=== PATIENT | male | born 1950 | race Caucasian/White ===

== ENCOUNTER 2017-10-23 06:12 | Day surgery (SDC) | payer OTHER ==
[2017-10-23] MEDS ORDERED: ATROPINE SULFATE 1 MG/10 ML SYR IVP ONE (06:15)
[2017-10-23] MEDS ORDERED: NS 1,000 ML IV ONE (06:15)
--- NOTE | 2017-10-23 06:29 | CPEKG ---
Heart Rate: 88 RR Interval: 682 QRSD Interval: 84 QT Interval: 360 QTC Interval: 436 QRS Barnhart: -61 T Wave Barnhart: -4 EKG Severity - ABNORMAL ECG - EKG Impression: ATRIAL FLUTTER, A-RATE 306 EKG Impression: LAD, CONSIDER LEFT ANTERIOR FASCICULAR BLOCK EKG Impression: REPOL ABNRM SUGGESTS ISCHEMIA, INFERIOR LEADS Electronically Signed By: Breezy Galicia 23-Oct-2017 08:22:26
[2017-10-23 06:53] LABS: INR 1.16 (0.83-1.16)
--- NOTE | 2017-10-23 07:51 | PDANEPAE ---
ANE History of Present Illness 66 yo for roya/cv ANE Past Medical History - Cardiovascular History Hx Arrhythmias: Yes - Pulmonary History Hx Oxygen in Use at Home: No Hx Sleep Apnea: No - Endocrine History Hx Diabetes: No ANE Review of Systems Review of Systems: - Exercise capacity METS (RN): 5 METS ANE Patient History - Allergies Allergies/Adverse Reactions: No Known Allergies Allergy (Unverified 02/21/16 12:34) - Home Medications Home medications: home medication list seen and reviewed Home Medications: Eliquis 5 mg PO BID 10/23/17 [Last Taken 10/23/17 05:15] Toprol Xl 25 mg PO DAILY 10/23/17 [Last Taken 10/23/17 05:15] - NPO status NPO Status: no food or drink >8 hours - Anes Hx Anes Hx: no prior problems - Smoking Hx Smoking Status: Never smoked ANE Labs/Vital Signs - Labs Result Diagrams: 10/23/17 06:15 10/23/17 06:15 - Vital Signs Height: 5 ft 8.9 in Weight: 66.7 kg ANE Physical Exam - Airway Neck exam: FROM Mallampati Score: Class 2 Mouth exam: normal dental/mouth exam - Pulmonary Pulmonary: no respiratory distress - Cardiovascular Cardiovascular: regular rate and rhythym - ASA Status ASA Status: II ANE Anesthesia Plan Anesthesia Plan: GA with mask
[2017-10-23] MEDS ORDERED: PROPOFOL 200 MG/20 ML VIAL ONE (07:59)
--- NOTE | 2017-10-23 08:10 | PDHPUP ---
History & Physical Update H&P update statement: This history and physical update is based on an assessment of the patient which was completed after admission or registration (within 24 hours), but prior to the surgery/procedure. H&P update: H&P reviewed & patient examined, no change in patient's condition since H&P completed
--- NOTE | 2017-10-23 08:39 | PDTEE1 ---
KASEY Cardioversion Procedure Procedure: electrical cardioversion, transesophageal echo Indications: atrial fibrillation Consent: signed and in chart Anticoagulation: eliquis Procedural Details: Sedation provided by the anesthesia service. Pads were placed in anterior- posterior position. KASEY probe was advanced and standard images obtained. There is no evidence of left atrial or left atrial appendage thrombus. Synchronized cardioversion attempt #1: 200J Results: normal sinus rhythm Conclusions: successful KASEY cardioversion (I directly supervised Génesis Cameron PA-C during the cardioversion portion of this procedure. She performed the cardioversion.)
--- NOTE | 2017-10-23 08:51 | CPEKG ---
Heart Rate: 66 RR Interval: 909 P-R Interval: 220 QRSD Interval: 86 QT Interval: 420 QTC Interval: 441 P Avon: 46 QRS Avon: -43 T Wave Avon: 13 EKG Severity - ABNORMAL ECG - EKG Impression: SINUS RHYTHM EKG Impression: FIRST DEGREE AV BLOCK EKG Impression: LAD, CONSIDER LEFT ANTERIOR FASCICULAR BLOCK Electronically Signed By: Breezy Galicia 23-Oct-2017 14:15:32
--- NOTE | 2017-10-23 08:56 | POSTANESTH ---
Post Anesthetic Evaluation Cardiovascular Status: Normal, Stable Respiratory Status: Normal, Stable Level of Consciousness/Mental Status: Can Participate in Eval Pain Control: Adequate, Prn Tx Ordered Nausea/Vomiting Control: Adequate, Prn Tx Ordered Complications Possibly Related to Anesthesia: None Noted
--- NOTE | 2017-10-23 10:04 | ECHO ---
[email or web address] [place] [id number] Main: [phone] Fax: Transesophageal Echocardiography Name: RODRIGUEZ ROWLEY MR#: [id number] Study Date: 10/23/2017 Study Time: 07:43 AM Date of : 1950 Age: 67 year(s) Height: ( ) Weight: ( ) BSA: Gender: Male Examination: KASEY Indication: Pre Cardioversion Image Quality: Contrast: Requested by: Soraya Sims Heart Rate: Rhythm: Atrial flutter BP: / Procedure Staff 3D Animator: Mika Hickey RDCS Reading Physician: Soraya Sims MD Requesting Provider: Maikol Deluca MD KASEY Exam Details Conclusions: Normal global systolic LV function. Normal RV function. An agitated saline study was performed and was negative for intracardiac shunting. Good color flow doppler in the left atrial appendage. No thrombus in left appendage. The mitral valve is normal in appearance. Trivial mitral valve regurgitation. The aortic valve is tri-leaflet and functions normally. The tricuspid valve appears normal. Proceeded with successful elective DC cardioversion.. Measurements: Chambers Valvular Assessment AV/MV Valvular Assessment TV/PV Normal Normal Normal Name Value Range Name Value Range Name Value Range Additional Measurements: Findings: Left Ventricle: Normal global systolic LV function. Right Ventricle: Normal RV function. Patient: RODRIGUEZ ROWLEY Study Date: 10/23/2017 Page 1 of 2 07:43 AM Left Atrium: An agitated saline study was performed and was negative for intracardiac shunting. Left Atrial Appendage: Good color flow doppler in the left atrial appendage. No thrombus in left appendage. Mitral Valve: The mitral valve is normal in appearance. Trivial mitral valve regurgitation. Aortic Valve: The aortic valve is tri-leaflet and functions normally. Tricuspid Valve: The tricuspid valve appears normal. Pulmonic Valve: The pulmonic valve is normal in appearance and function. Aorta: The aorta is normal. Pericardium: No pericardial effusion. Exam Comments: Proceeded with successful elective DC cardioversion.. l1n (No Signature Object) Patient: RODRIGUEZ ROWLEY Study Date: 10/23/2017 Page 2 of 2 07:43 AM [id number]
== END 2017-10-23 09:36 | disposition home or self-care (01) ==
LOC: FCATH 06:12
PROVIDERS: ATTEND Internal Medicine Cardiovascular Disease
DX: I48.0 Paroxysmal atrial fibrillation (principal); E78.5 Hyperlipidemia, unspecified; I11.9 Hypertensive heart disease without heart failure
CPT/HCPCS: J0461; J2704

== ENCOUNTER → 2017-11-12 | Outpatient (CLI) | payer OTHER ==
[~2017-11-12] MED LIST: IOPAMIDOL (ISOVUE 370) 100 ML BTL IV ONE
== END ==
LOC: FIMAGING 14:45
PROVIDERS: ATTEND Internal Medicine Cardiovascular Disease
DX: I48.0 Paroxysmal atrial fibrillation (principal)
CPT/HCPCS: 75572; Q9967

== ENCOUNTER 2017-11-17 11:07 | Observation (INO) | payer OTHER ==
[2017-11-17] MEDS ORDERED: NS 1,000 ML IV ONE (11:10)
--- NOTE | 2017-11-17 11:29 | CPEKG ---
Heart Rate: 61 RR Interval: 984 P-R Interval: 232 QRSD Interval: 88 QT Interval: 432 QTC Interval: 435 P Redby: 61 QRS Redby: -31 T Wave Redby: 34 EKG Severity - ABNORMAL ECG - EKG Impression: SINUS RHYTHM EKG Impression: FIRST DEGREE AV BLOCK EKG Impression: LEFT AXIS DEVIATION Electronically Signed By: Timothy Quintero 17-Nov-2017 12:40:11
[2017-11-17] MEDS ORDERED: HEPARIN 10,000 UNIT/10 ML MDV (1,000 UNIT/ML) ONE ×2 (11:36→13:08)
[2017-11-17] MEDS ORDERED: ISOPROTERENOL HCL/D5W 0.2 MG/50 ML BAG IV ONE (11:36)
[2017-11-17] MEDS ORDERED: LIDOCAINE 1% 300 MG/30 ML SDV ONE (11:36)
[2017-11-17] MEDS ORDERED: BUPIVACAINE 0.5% 30 ML SDV ONE (11:36)
[2017-11-17 11:44] LABS: PLATELET COUNT 187 10^3/uL (150-400)
[2017-11-17 11:52] LABS: INR 1.01 (0.83-1.16); PROTIME(PATIENT) 13.5 SEC (12.0-15.0)
--- NOTE | 2017-11-17 12:32 | PDANEPAE ---
ANE Past Medical History - Cardiovascular History Hx Arrhythmias: Yes - Pulmonary History Hx Oxygen in Use at Home: No Hx Sleep Apnea: No - Endocrine History Hx Diabetes: No ANE Review of Systems Review of Systems: ANE Patient History - Allergies Allergies/Adverse Reactions: No Known Allergies Allergy (Verified 11/17/17 12:05) - Home Medications Home Medications: Apixaban [Eliquis] 5 mg PO BID #0 10/23/17 [Last Taken 11/14/17 21:00] Metoprolol Succinate Xr [Toprol Xl 25 mg (*)] 12.5 mg PO DAILY #0 10/23/17 [ Last Taken 11/05/17] Ascorbic Acid [Vitamin C 500 mg (*)] 1,000 mg PO DAILY 11/17/17 [Last Taken ] Cholecalciferol Vit D3 [Vitamin D3 (*)] 1,000 units PO DAILY 11/17/17 [Last Taken 11/16/17] Glucosamine Sulfate [Glucosamine Sulfate 500 MG (*)] 1,500 mg PO DAILY 11/17/17 [Last Taken 11/16/17] Herbals/Supplements -Info Only 1 ea PO DAILY 11/17/17 [Last Taken Unknown] Irbesartan [Avapro 75 mg (*)] 75 mg PO DAILY 11/17/17 [Last Taken 11/14/17] Multivitamins [Multivitamin (*)] 1 each PO DAILY 11/17/17 [Last Taken 11/16/17] Omeprazole 20 mg PO DAILY 11/17/17 [Last Taken 11/16/17] - Smoking Hx Smoking Status: Never smoked TRENA Labs/Vital Signs - Labs Result Diagrams: 11/17/17 11:38 11/17/17 11:38 - Vital Signs Height: 175.26 cm Weight: 66.224 kg ANE Physical Exam - Airway Neck exam: FROM Mallampati Score: Class 2 Mouth exam: normal dental/mouth exam - Pulmonary Pulmonary: no respiratory distress - Cardiovascular Cardiovascular: regular rate and rhythym - ASA Status ASA Status: II ANE Anesthesia Plan Anesthesia Plan: general endotracheal anesthesia
[2017-11-17] MEDS ORDERED: fentaNYL 250 MCG/5 ML INJ ONE (12:41)
[2017-11-17] MEDS ORDERED: ROCURONIUM 100 MG/10 ML VIAL ONE (12:41)
[2017-11-17] MEDS ORDERED: MIDAZOLAM 2 MG/2 ML VIAL ONE (12:41)
[2017-11-17] MEDS ORDERED: PROPOFOL/EMULSION 500 MG/50 ML BOTTLE IV ONE ×2 (12:41→14:52)
--- NOTE | 2017-11-17 12:44 | PDGENHP ---
History & Physical Chief Complaint: symptomatic AT vs AFL Relevant Physical Exam: s1s2 rrr. cta. ao3 Cardiorespiratory Assessment: prior ablation for afib and afl. plan to induce AT at EPS and ablate if possible. If AT/AFL not inducible, plan mapping of CT isthmus line and prior PV and voltage map of LA to assess for potential channels. If no gaps or potential channels, no ablation will be done. Patient and understand
[2017-11-17] MEDS ORDERED: DESFLURANE 240 ML BOTTLE IH ONE (12:53)
[2017-11-17] MEDS ORDERED: HEPARIN/DEXTROSE 25,000 UNIT/500 ML BAG ONE (13:08)
[2017-11-17] MEDS ORDERED: PROTAMINE SULFATE 50 MG/5 ML VIAL IVP ONE (19:18)
[2017-11-17] MEDS ORDERED: ONDANSETRON 4 MG/2 ML VIAL IVP PRN (20:00)
[2017-11-17] MEDS ORDERED: ACETAMINOPHEN 500 MG TAB PO PRN (20:00)
[2017-11-17] MEDS ORDERED: NALOXONE HCL 0.4 MG/ML INJ IVP PRN (20:00)
[2017-11-17] MEDS ORDERED: ALBUTEROL 3 ML DEYVIAL IH PRN (20:00)
--- NOTE | 2017-11-17 20:01 | POSTANESTH ---
Post Anesthetic Evaluation Cardiovascular Status: Similar to Pre-Op Cond Respiratory Status: Similar to Pre-op Cond. Level of Consciousness/Mental Status: Mildly Sleepy, Arousable Pain Control: Adequate, Prn Tx Ordered Nausea/Vomiting Control: Adequate, Prn Tx Ordered Complications Possibly Related to Anesthesia: None Noted
--- NOTE | 2017-11-17 20:41 | CPEKG ---
Heart Rate: 67 RR Interval: 896 P-R Interval: 200 QRSD Interval: 94 QT Interval: 444 QTC Interval: 469 P Reddick: 28 QRS Reddick: -22 T Wave Reddick: 24 EKG Severity - OTHERWISE NORMAL ECG - EKG Impression: SINUS RHYTHM EKG Impression: BORDERLINE LEFT AXIS DEVIATION Electronically Signed By: Timothy Quintero 18-Nov-2017 07:18:06
[2017-11-18] MEDS: APIXABAN 5 MG TAB PO SCH ×2 (01:25→08:38)
[2017-11-18 05:41] LABS: CREATINE KINASE 251 IU/L (0-224)
[2017-11-18 06:33] LABS: PLATELET COUNT 136 10^3/uL (150-400)
--- NOTE | 2017-11-18 07:42 | EPPROC ---
Electrophysiology Procedure Note: ELECTROPHYSIOLOGIC STUDY AND CATHETER MEDIATED ABLATION FOR PAROXYSMAL ATRIAL FIBRILLATION AND LEFT ATRIAL TACHYCARDIA Procedures performed: 18893-71 EP evaluation with RA/RV/LA pace/record, with arrhythmia induction 21192-92 EP evaluation with RA/RV pace record, insert/reposition catheter, with arrhythmia induction 15183 Atrial fibrillation ablation Additional arrhythmia 55220 3D mapping Intracardiac echocardiogram Transseptal puncture Fluoroscopy INDICATION: Left atrial tachycardia and atrial fibrillation Prior ablation at [facility] (Dr. Tolliver) for AFIB PVI + CT isthmus ablation + CS ablation PROCEDURE: The patient arrived in the Electrophysiology Laboratory in the fasting state. The right groin, left groin and right infraclavicular area were prepped and draped in the usual sterile fashion. Anesthesiologist administered general anesthesia Dr. Karlo Paige. All catheters were placed percutaneously using the Seldinger technique and advanced into position under fluoroscopic guidance. One #7 Kyrgyz deflectable octapolar electrode catheter was placed in the His-bundle position via the left femoral vein (2mm spacing, IVC electrode for unipolar recordings). A Halo catheter was placed in the RA along the TA. A 20 pole catheter was placed in the CS. Programmed stimulation from RA, CS, RV was performed. Bidirectional block was demonstrated along the previously ablated CTI. Programmed stimulation induced 3 different atrial tachycardias: AT #1, CL 250 ms entrainment from lat TA, septal TA, posterior MA, lateral MA demonstrated left atrial tachycardia, shortest PPI from posterior and lateral MA AT #2, CL 220 ms entrainment from lat TA, septal TA, posterior MA, lateral MA demonstrated left atrial tachycardia, all PPI >60 ms, likely LA roof AT # 3, CL 380 ms - entrainment from lat TA, septal TA, posterior MA, lateral MA demonstrated left atrial tachycardia. This occurred during ablation for AT# 1 Baseline ACT was drawn and heparin bolus was administered and heparin drip was started prior to transseptal puncture. ACT was checked every 15 minutes and maintained in the range of 350-400 seconds. One SL1 sheath was inserted into the right femoral vein and advanced into the right atrium. Transseptal puncture was performed under intracardiac ultrasound , fluoroscopic and hemodynamic guidance placing the sheath into the left atrium. This sheath was changed to a Biosense Crowder Mobi sheath. Limecraft RF needle (C0 curve) was used. The mean left atrial pressure was 5 mmHg. Pentaray catheter was placed in the left atrium and a high resolution map of LA and PV was obtained during sinus rhythm. This demonstrated extensive scar in the posterior left atrium. Entire posterior wall had low/no voltage. Normal voltage was noted in anterior left atrium and left atrial appendage. There was reconnection of LIPV and RIPV. Ablation was performed using 3.5 mm Carto STSF catheter in following locations anterior to LIPV, posterior to LIPV, LPV erika , anterior to RIPV, posterior to RIPV. Post ablation map confirmed isolation of all 4 PV. Programmed stimulation now induced AT#1. High resolution map (Pentaray) and entrainment confirmed counterclockwise mitral isthmus reentry. Ablation was performed between MA and LIPV anteriorly, this terminated AT#1 during ablation and changed to AT#3, however AT#1 was reinducible at end of procedure. See end of report. Following this AT#2 was inducible, shortest PPI was along LA roof near gap in roof line. Roof line was completed, ablation was required near RSPV roof. AT# 2 was not inducible after this ablation. AT#3 self terminated and was not targeted for ablation. AT#1 was reinducible at end of procedure. Sheath was withdrawn to RA and mapping done in the CS and CTI. CTI PPI was long ruling out atrial flutter. 6 mm cryo catheter was introduced into the lateral coronary sinus and cryoablation delivered. AT#1 terminated in 15 s after onset of cryo ablation, confirming likely epicardial connection along mitral isthmus line. Post cryo lesion, AT1 was reinducible. It terminated again with 2nd cryo ablation, however was inducible post ablation. Cryo lesions were delivered anterior and posterior to original cryolesions. However AT1 continued to be inducible. We elected not to ablate with RF at this location given proximity to left circumflex artery. At this point the procedure was terminated and the patient was cardioverted to sinus rhythm. An esophageal temperature probe (12 electrode, Circa) was placed by the anesthesiologist at the beginning of the procedure. Esophageal temperature was monitored continuously and RF ablation was interrupted if there was a temperature rise >0.5 C. There was no esophageal temperature rise. ICE imaging was consistent with pre ablation imaging; moreover it showed no pericardial effusion or LA/ERVIN thrombus at the end of the procedure. ECG at end of procedure confirmed sinus rhythm with no STT changes. The catheters were withdrawn. Protamine was given. Venous vascular access sheaths were removed in the EP lab after placing subcutaneous pursestring suture. The patient was recovered from anesthesia. Patient was taken to the ICU in stable condition. There were no complications. CONCLUSIONS: 1. Extensive posterior LA scarring likely from prior ablation procedure. LIPV and RIPV were reisolated during this procedure. 2. 3 distinct left atrial tachycardias targeted for ablation. 3. Mitral isthmus counterclockwise reentrant left atrial tachycardia could not be successfully ablated (RF endocardial and cryo epicardial in CS), likely due to epicardial connection. 4. No complications Patient Problems: Problems Problem Status Onset Atrial fibrillation and flutter Acute
--- NOTE | 2017-11-18 08:56 | CPEKG ---
Heart Rate: 68 RR Interval: 882 P-R Interval: 204 QRSD Interval: 90 QT Interval: 412 QTC Interval: 439 P Branscomb: 48 QRS Branscomb: -22 T Wave Branscomb: 37 EKG Severity - OTHERWISE NORMAL ECG - EKG Impression: SINUS RHYTHM EKG Impression: BORDERLINE LEFT AXIS DEVIATION EKG Impression: LOW VOLTAGE IN FRONTAL LEADS Electronically Signed By: Timothy Quintero 18-Nov-2017 11:03:05
[2017-11-18] MEDS ORDERED: PANTOPRAZOLE SODIUM 40 MG TAB PO SCH (09:00)
[2017-11-18] MEDS ORDERED: METOPROLOL SUCCINATE XR 25 MG TAB PO SCH (09:00)
--- NOTE | 2017-11-18 11:13 | ECHO ---
[email or web address] [address] [address] Main: [phone] Fax: Transthoracic Echocardiogram Name: RODRIGUEZ ROWLEY MR#: [id number] Study Date: 11/18/2017 Study Time: 09:03 AM Date of : 1950 Age: 67 year(s) Height: 175.3 cm (69 in.) Weight: 66.23 kg (146 lb.) BSA: 1.81 m2 Gender: Male Examination: Echo Indication: F/U POST EP STUDY Image Quality: Adequate Contrast: Requested by: Timothy Quintero BP: 131 mmHg/87 mmHg Heart Rate: Rhythm: Indication: F/U POST EP STUDY Procedure Staff Turbine Room Attendant: Hailey Barton RDCS Reading Physician: Howie Ojeda MD Requesting Provider: Conclusions: Normal global systolic LV function. EF is 63 %. Mild mitral valve regurgitation is present. Trivial aortic valve regurgitation. Mild tricuspid regurgitation is present. Right ventricular systolic pressure measures 39mmHg. Measurements: Chambers Valvular Assessment AV/MV Valvular Assessment TV/PV Normal Normal Normal Name Value Range Name Value Range Name Value Range Ao Jannie (2D): 3.6 cm (1.4 cm-2.6 AV meanP mmHg ( - ) TR Vmax: 2.92 mm/s ( - ) cm) GAYATRI (VTI): 2.9 cm ( - ) TR PGmax: 34 mmHg ( - ) IVSd (2D): 1.3 cm (0.6 cm-1.1 MV E Vmax: 1.05 m/s ( - ) syst. PAP: 39 mmHg ( - ) cm) MV A Vmax: 0.49 m/s ( - ) PV Vmax: 0.90 m/s (0.6 m/s-0.9 LVDd (2D): 4.5 cm (4.2 cm-5.9 MV E/A: 2.14 ( - ) m/s) cm) MV PHT: 0.048 s ( - ) PV PGmax: 3 mmHg ( - ) LVDs (2D): 3.0 cm (2.1 cm-4 cm) MVA (PHT): 4.6 s ( - ) LVPWd (2D): 1.2 cm (0.6 cm-1 cm) LVOTd 2.2 cm 2.2 cm mm LVEF (BP): 63 % (>=55 %) RVDd(2D): 3.1 cm (1.9 cm-3.8 cmmm) Continued Measurements: Chambers Valvular Assessment AV/MV Valvular Assessment TV/PV Name Value Name Value Name Value Patient: RODRIGUEZ ROWLEY Study Date: 11/18/2017 Page 1 of 2 09:03 AM LADs: 3.2 cm MV DecTime: 187 m/s CVP (est.): 5 mmHg LADs Lon.5 cm MV E' Septal: 0.08 m/s LA Area: 17.4 cm2 MV E/E' Septal: 14.00 LA Volume: 48 ml MV E/E' Lateral: 10.10 LA Volume Index: 26.5 ml/m2 Additional Vessels Name Value Ao Ascendin.6 cm Inferior Vena Cava: 2.5 cm Findings: Left Ventricle: Normal size left ventricle. No LV hypertrophy. Normal global systolic LV function. EF is 63 %. No regional wall motion abnormality. Normal diastolic LV function. Right Ventricle: Normal size right ventricle. Normal RV function. Left Atrium: The left atrium is normal in size. Right Atrium: The right atrium is normal in size. Mitral Valve: The mitral valve is normal in appearance and function. Mild mitral valve regurgitation is present. No mitral stenosis is present. Aortic Valve: The aortic valve is normal in appearance and function. Trivial aortic valve regurgitation. No aortic valve stenosis is present. Tricuspid Valve: The tricuspid valve is normal in appearance and function. Mild tricuspid regurgitation is present. The pulmonary artery pressure is normal. Right ventricular systolic pressure measures 39mmHg. Pulmonic Valve: The pulmonic valve is normal in appearance and function. There is no pulmonic regurgitation seen. Aorta: The aorta is normal. Normal size aortic root measuring 3.6 cm. Normal size ascending aorta measuring 3.6 cm. IVC: The IVC is dilated. Pericardium: No pericardial effusion. No pleural effusion. (No Signature Object) Patient: RODRIGUEZ ROWLEY Study Date: 11/18/2017 Page 2 of 2 09:03 AM [id number]
[2017-11-18 11:15] VITALS: BP 135/73
--- NOTE | 2017-11-18 14:47 | GDS ---
[f rep st] DISCHARGE SUMMARY DISCHARGE DIAGNOSIS: 1. Atrial fibrillation, status post prior ablation procedure with re-isolation of the left inferior pulmonary vein and the right inferior pulmonary vein. 2. Three distinct left atrial tachycardias. 3. Mitral isthmus counterclockwise reentrant left atrial tachycardia that could not be successfully ablated, likely due to epicardial connection. 4. History of hypertension. 5. History of dyslipidemia. PROCEDURES: 1. 11/17/2017, EP procedure with re-isolation of the LIPV, RIPV and left atrial tachycardia ablation s. 2. 11/18/2017, echocardiogram which shows EF of 63, mild MR, trivial AR, mild TR, and RVSP of 39. BRIEF HISTORY: Please see dictated office note for a complete history. In brief, Mr. Margarito Soares is a 67-year-old male who has a history of an ablation procedure at [facility] in 2004, hypertens ion, who has had recurrent palpitations since 2016. On two occasions, he required DC cardioversion. Patient was seen by Dr. Quintero and options were reviewed. Patient agreed to proceed to repeat ablation procedure. This was done on 11/17/2017. Results are dictated above. On day of discharge, patient denies any chest pain, dyspnea, or pain at groin sites. PHYSICAL EXAMINATION: VITAL SIGNS: BP of 135/73, heart rate 63, respirations 14, O2 saturation 98% on room air, temperature of 97.7. GENERAL: He is a pleasant male in no apparent distress. HEENT: H ead is normal normocephalic, atraumatic. Eyes are PERRL. HEART: Regular rate and rhythm. LUNGS: Clear. SKIN: Bilateral groin sites without ecchymosis or bruit. There are 2+ PT and DP pulses bilat erally. LABORATORY: CBC on day of discharge, WBC 5.18, hemoglobin 12.9, hematocrit 37.7, platelet count 136. BMP with sodium 139, potassium 4.6, chloride 109, CO2 22, BUN 19, creatinine 0.8, glucose 123. Tro ponin 1.42 consistent with repeat ablation. RESULTS PENDING: None. DIET: Per previous. ACTIVITY: Groin precautions were reviewed. DISCHARGE MEDICATIONS: Please see medication reconciliation. He is being discharged on all his home medications, which include glucosamine, vitamin D3, multivitamin, Avapro, vitamin C, Eliquis, omepra zole, and metoprolol. FOLLOWUP INSTRUCTIONS: Follow up in [address] Quintero. /[id number]/MODL
== END 2017-11-18 11:25 | disposition home or self-care (01) ==
LOC: FCATH 11:07 → F2N 19:31
PROVIDERS: ADMIT Internal Medicine Cardiovascular Disease; ATTEND Internal Medicine Cardiovascular Disease
PROC: 025S3ZZ Destruction of Right Pulmonary Vein, Percutaneous Approach (ICD-10-PCS; principal; 2017-11-17)
PROC: 5A1213Z Performance of Cardiac Pacing, Intermittent (ICD-10-PCS; principal; 2017-11-17)
PROC: 02583ZZ Destruction of Conduction Mechanism, Percutaneous Approach (ICD-10-PCS; principal; 2017-11-17)
PROC: 025T3ZZ Destruction of Left Pulmonary Vein, Percutaneous Approach (ICD-10-PCS; principal; 2017-11-17)
PROC: 4A023FZ Measurement of Cardiac Rhythm, Percutaneous Approach (ICD-10-PCS; principal; 2017-11-17)
PROC: B245ZZZ Ultrasonography of Left Heart (ICD-10-PCS; principal; 2017-11-17)
PROC: 02K83ZZ Map Conduction Mechanism, Percutaneous Approach (ICD-10-PCS; principal; 2017-11-17)
DX: I48.0 Paroxysmal atrial fibrillation (principal); I47.1 Supraventricular tachycardia; I48.92 Unspecified atrial flutter; I11.9 Hypertensive heart disease without heart failure; E78.5 Hyperlipidemia, unspecified; I42.9 Cardiomyopathy, unspecified; Z79.01 Long term (current) use of anticoagulants; Z82.49 Family history of ischemic heart disease and other diseases of the circulatory system
CPT/HCPCS: 93005; 93306; 93312; 93613; 93623; 93655; 93656; 93662; C1731; C1732; C1733; C1759; C1766; C1893; G0378; J1644; J2250; J2704; J2720; J3010

== ENCOUNTER 2017-11-25 13:22 | Emergency (ER) | payer OTHER ==
--- NOTE | 2017-11-25 13:35 | CPEKG ---
Heart Rate: 106 RR Interval: 566 P-R Interval: 192 QRSD Interval: 88 QT Interval: 332 QTC Interval: 441 P Norfolk: 7 QRS [place]: -38 T Wave [place]: 41 EKG Severity - BORDERLINE ECG - EKG Impression: Atrial tachycardia with 2:1 conduction Electronically Signed By: Timothy Quintero 26-Nov-2017 06:54:24
[2017-11-25] MEDS ORDERED: NS 1,000 ML IV ONE (13:41)
--- NOTE | 2017-11-25 13:44 | EDPHY ---
H & P Stated Complaint: ablation 11/17 now believes he is having irregular heart rate Time Seen by Provider: 11/25/17 13:32 HPI/ROS: CHIEF COMPLAINT: Palpitations HISTORY OF PRESENT ILLNESS: Patient is a 67-year-old man with a history of [id number] atrial fibrillation and flutter. He is status post ablation on November 17 that was deemed unsuccessful because he continue to go in and out of atrial fibrillation and had to be cardioverted at the end. He takes Eliquis daily. His tile mechanic is Dr. Quintero. He states that his heart rate felt normal throughout the last week but then about 24 hr ago he began feeling palpitations. He is very attuned to his heart rate. He states that his heart rate has been around 105 ever since. This makes it difficult for him to exercise. He denies chest pain or shortness of breath. He denies edema or swelling. No lightheadedness. REVIEW OF SYSTEMS: Constitutional: denies: chills, fever, recent illness, recent injury EENTM: denies: blurred vision, double vision, nose congestion Respiratory: denies: cough, shortness of breath Cardiac: See HPI Gastrointestinal/Abdominal: denies: abdominal pain, diarrhea, nausea, vomiting, blood streaked stools Genitourinary: denies: dysuria, frequency, hematuria, pain Musculoskeletal: denies: joint pain, muscle pain Skin: denies: lesions, rash, jaundice, bruising Neurological: denies: headache, numbness, paresthesia, tingling, dizziness, weakness Hematologic/Lymphatic: denies: blood clots, easy bleeding, easy bruising Immunologic/allergic: denies: HIV/AIDS, transplant EXAM: GENERAL: Well-appearing, well-nourished and in no acute distress. HEAD: Atraumatic, normocephalic. EYES: Pupils equal round and reactive to light, extraocular movements intact, sclera anicteric, conjunctiva are normal. ENT: TMs normal, nares patent, oropharynx clear without exudates. Moist mucous membranes. NECK: Normal range of motion, supple without lymphadenopathy or JVD. LUNGS: Breath sounds clear to auscultation bilaterally and equal. No wheezes rales or rhonchi. HEART: Slightly tachycardic, without murmurs, rubs or gallops. ABDOMEN: Soft, nontender, normoactive bowel sounds. No guarding, no rebound. No masses appreciated. BACK: No CVA tenderness, no spinal tenderness, step-offs or deformities EXTREMITIES: Normal range of motion, no pitting or edema. No clubbing or cyanosis. NEUROLOGICAL: Cranial nerves II through XII grossly intact. Normal speech, normal gait. 5/5 strength, normal movement in all extremities, normal sensation PSYCH: Normal mood, normal affect. SKIN: Warm, dry, normal turgor, no visible rashes or lesions. Source: Patient Exam Limitations: No limitations - Personal History Current Tetanus Diphtheria and Acellular Pertussis (TDAP): Yes Tetanus Vaccine Date: < 10 years - Medical/Surgical History Hx Asthma: No Hx Chronic Respiratory Disease: No Hx Diabetes: No Hx Cardiac Disease: Yes Hx Renal Disease: No Hx Cirrhosis: No Hx Alcoholism: No Hx HIV/AIDS: No Hx Splenectomy or Spleen Trauma: No Other PMH: AFIB WITH ABLATION 2004 and 2017, hernia repair, high cholesterol, htn, - Family History Significant Family History: No pertinent family hx - Social History Smoking Status: Never smoked Alcohol Use: Sober Drug Use: None Constitutional: Initial Vital Signs Temperature (C) 36.5 C 11/25/17 13:25 Heart Rate 104 H 11/25/17 13:25 Respiratory Rate 16 11/25/17 13:25 Blood Pressure 129/94 H 11/25/17 13:25 O2 Sat (%) 96 11/25/17 13:25 O2 Delivery Mode Room Air Allergies/Adverse Reactions: No Known Allergies Allergy (Verified 11/25/17 13:28) Home Medications: Medication Instructions Recorded Apixaban [Eliquis] 5 mg PO BID #0 10/23/17 Metoprolol Succinate Xr [Toprol Xl 12.5 mg PO DAILY #0 10/23/17 25 mg (*)] Ascorbic Acid [Vitamin C 500 mg 1,000 mg PO DAILY 11/17/17 (*)] Cholecalciferol Vit D3 [Vitamin D3 1,000 units PO DAILY 11/17/17 (*)] Glucosamine Sulfate [Glucosamine 1,500 mg PO DAILY 11/17/17 Sulfate 500 MG (*)] Herbals/Supplements -Info Only 1 ea PO DAILY 11/17/17 Irbesartan [Avapro 75 mg (*)] 75 mg PO DAILY 11/17/17 Multivitamins [Multivitamin (*)] 1 each PO DAILY 11/17/17 Omeprazole 20 mg PO DAILY 11/17/17 Medical Decision Making - Diagnostics EKG Interpretation: An EKG obtained and was read and documented in trace view. Please see trace view for full reading and report. Atrial flutter of to 1 block rate of [address] Quintero who says that this is atrial tachycardia. He would like to cardioverted in the CCU with transesophageal echo 1st. However the patient just launch at 1:00 p.m.. ED Course/Re-evaluation: Patient appears to in flutter. His heart rate is very consistent 07/20/2004. He is requesting cardioversion. He states that this usually works for him. He is on Eliquis. I will consult Dr. Quintero 1st. 1:50 p.m. I spoke with Dr. Quintero who would prefer that the patient have a KASEY prior to cardioversion. He requested we transfer the patient up to the cardiac care unit for cardioversion and KASEY. Untunately however the patient ate launch at 1:00 p.m.. 205 the patient will go home and be scheduled tomorrow for cardioversion. Differential Diagnosis: Partial list of the Differential diagnosis considered include but were not limited to; atrial tachycardia, atrial flutter, atrial fibrillation and although unlikely based on the history and physical exam, I also considered infection, acute coronary disease. - Data Points Laboratory Results: Laboratory Results 11/25/17 13:35 11/25/17 13:35 11/25/17 11/25/17 11/25/17 13:35 13:35 13:35 WBC 7.70 10^3/uL 10^3/uL (3.80-9.50) RBC 5.03 10^6/uL 10^6/uL (4.40-6.38) Hgb 16.1 g/dL g/dL (13.7-17.5) Hct 47.2 % % (40.0-51.0) MCV 93.8 fL fL (81.5-99.8) MCH 32.0 pg pg (27.9-34.1) MCHC 34.1 g/dL g/dL (32.4-36.7) RDW 12.2 % % (11.5-15.2) Plt Count 234 10^3/uL 10^3/uL (150-400) MPV 10.5 fL fL (8.7-11.7) Neut % (Auto) 64.8 % % (39.3-74.2) Lymph % (Auto) 20.8 % % (15.0-45.0) Nance % (Auto) 10.4 % % (4.5-13.0) Eos % (Auto) 3.0 % % (0.6-7.6) Baso % (Auto) 0.6 % % (0.3-1.7) Nucleat RBC Rel Count 0.0 % % (0.0-0.2) Absolute Neuts (auto) 4.99 10^3/uL 10^3/uL (1.70-6.50) Absolute Lymphs (auto) 1.60 10^3/uL 10^3/uL (1.00-3.00) Absolute Monos (auto) 0.80 10^3/uL 10^3/uL (0.30-0.80) Absolute Eos (auto) 0.23 10^3/uL 10^3/uL (0.03-0.40) Absolute Basos (auto) 0.05 10^3/uL 10^3/uL (0.02-0.10) Absolute Nucleated RBC 0.00 10^3/uL 10^3/uL (0-0.01) Immature Gran % 0.4 % % (0.0-1.1) Immature Gran # 0.03 10^3/uL 10^3/uL (0.00-0.10) PT 13.8 SEC SEC (12.0-15.0) INR 1.04 (0.83-1.16) APTT 29.3 SEC SEC (23.0-38.0) Sodium 140 mEq/L mEq/L (135-145) Potassium 4.7 mEq/L mEq/L (3.5-5.2) Chloride 103 mEq/L mEq/L (97-110) Carbon Dioxide 29 mEq/l mEq/l (22-31) Anion Gap 8 mEq/L mEq/L (8-16) BUN 18 mg/dL mg/dL (7-23) Creatinine 0.8 mg/dL mg/dL (0.7-1.3) Estimated GFR > 60 Glucose 100 mg/dL mg/dL (70-100) Calcium 9.9 mg/dL mg/dL (8.5-10.4) Medications Given: Discontinued Medications Sodium Chloride (Ns) 1,000 mls @ 0 mls/hr IV EDNOW ONE; Wide Open PRN Reason: Protocol Stop: 11/25/17 13:42 Last Admin: 11/25/17 13:48 Dose: 1,000 mls Departure - Departure Disposition: [facility] Inpatient Acute Clinical Impression: Atrial flutter by electrocardiogram Condition: Fair Instructions: Atrial Flutter (ED) Referrals: CHRISTIANO CORREA [Primary Care Provider] - As per Instructions
[2017-11-25 13:53] LABS: PLATELET COUNT 234 10^3/uL (150-400)
[2017-11-25 14:03] LABS: INR 1.04 (0.83-1.16); PROTIME(PATIENT) 13.8 SEC (12.0-15.0)
[2017-11-25 14:32] VITALS: BP 138/91
--- NOTE | 2017-11-25 16:29 | GCON ---
[f rep st] CONSULTATION DATE OF CONSULTATION: 11/25/2017 REFERRING PHYSICIAN: Isra Smart MD REASON FOR CONSULTATION: Elevated heart rate, atrial tachycardia. HISTORY OF PRESENT ILLNESS: Mr. Soares is a 67-year-old male who is known to our practice. He has s ignificant past history that includes atrial fibrillation, atrial flutter, atrial tachycardia, hypert ension, and hyperlipidemia. He has recently undergone electrophysiology study with atrial flutter ab lation on November [address] Quintero of our electrophysiology services. During procedure, 3 separate sources were located; unfortunately only 2 of them were able to be ablated. He informs me today that he has been in his normal state of health since the procedure and feeling well. He did go for a 6-mile [place] yesterday, feeling fine; but as soon as he got home and started resting, he noted that his heart ra te was maintaining elevation around 100 beats per minute. He reports no chest pain or pressure. Den ies any lightheadedness, orthopnea, PND, edema, near-syncope, or syncopal events. Reporting no recen t fevers chills or night sweats. He initially thought the symptoms would dissipate, but after going on for greater than 24 hours, he decided to come to the emergency department for further evaluation. Upon ED visit, electrocardiogram was done, showing atrial tachycardia with ventricular rate ranging between 100-110 BPM. Laboratory studies drawn today showed no anemia and normal electrolyte and sarah l function. He has been hemodynamically stable, and his vital signs have been within normal limits s bre emergency department visit. PAST MEDICAL HISTORY: Includes: 1. Atrial fibrillation. 2. Atrial flutter. 3. Atrial tachycardia. 4. Hyperlipidemia. 5. Paroxysmal atrial fibrillation. PAST SURGICAL HISTORY: Includes atrial fibrillation and atrial flutter ablation at [facility] [place] in 2004, knee surgery with meniscus repair, and previous cardioversions. FAMILY HISTORY: Patient reports family history of myocardial infarction. SOCIAL HISTORY: Patient is retired. He is . He has 1 adult daughter. He denies any tobacco use, reports rare alcohol use, and denies any illicit drug use. ALLERGIES: No known drug allergies. HOME MEDICATIONS: Include: 1. Omeprazole 20 mg p.o. daily. 2. Multivitamin 1 tablet p.o. daily. 3. Metoprolol succinate 12.5 mg p.o. daily. 4. Avapro 75 mg p.o. daily. 5. Herbs and supplements: Glucosamine 1500 mg p.o. daily vitamin D 1000 units p.o. daily, vitamin C 1000 mg p.o. daily. 6. Eliquis 5 mg p.o. b.i.d. REVIEW OF SYSTEMS: A 10-point review of systems done and all negative except as mentioned above. PHYSICAL EXAMINATION: GENERAL APPEARANCE: Thin, well-groomed male. He is alert and orien pito to person, place, time, and situation. Appears to be under no acute distress. VITAL SIGNS: Cur rent blood pressure of 138/91, heart rate of 101, respirations 18, saturating 95% on room air. HEENT : Head is normocephalic. Lips and tongue are pink and moist with no signs of cyanosis. Conjunctiva e pink. NECK: Trachea is midline, +2 carotid pulses bilateral. No auscultated bruits. No jugular vein distention. RESPIRATORY: Lungs are clear to auscultation. No rhonchi, rales or wheezes. No a ccessory muscle use. No intercostal muscle retraction noted. CARDIAC: Tachycardic rate, regular rh ythm. S1, S2. No S3, S4 gallops, rubs, or murmurs noted. ABDOMEN: Soft, nontender. Bowel sounds x4 quadrants. No organomegaly. No palpable masses. SKIN: [place], warm, and dry. No cyanosis, no cl ubbing, and no peripheral edema. VASCULAR: +2 carotids bilateral, +2 radials bilateral, +2 dorsal p edal and posterior tibial pulses bilateral. LABORATORY DATA: Today, WBC of 7.70, hemoglobin of 16.1, hematocrit of 47.2, platelet count of 234. INR of 1.04, sodium 140, potassium 4.7, chloride 103, CO2 29, BUN 18, creatinine 0.8, glucose 100, c alcium 9.9. STUDIES: Electrocardiogram done in the emergency department today showing atrial tachycardia with ve ntricular rate at 106 beats per minute, left axis deviation. Echocardiogram done post ablation procedure done on 11/18/2017. The patient is noted to have an EF o f 63% with mild mitral valve regurgitation, trivial AI, mild TR, and RVSP of 39 mmHg with no pericard ial effusion. ASSESSMENT AND PLAN: Atrial tachycardia: This has been a recurring patient recurring issue for this patient. He has recently undergone electrophysiology study and atrial tachycardia ablation. It was noted that he had 3 areas that were causing atrial tachycardia; unfortunately, only 2 areas were abl e to be ablated. He denies any chest pain or shortness of breath. He is hemodynamically stable. Jef wendie does report that he had eaten approximately 1 hour ago. At this time, I have offered the optio n of admitting the patient overnight with plan of making him n.p.o. Overnight, planning for him to un dergo a KASEY cardioversion in the morning, or letting him go home and returning in the morning for a T EE cardioversion. Patient has chosen to go home. I have recommended that he takes another dose of h is metoprolol succinate this evening and continue on his current anticoagulation of Eliquis. We will plan for him to come in tomorrow morning through our CVC Department, where he will undergo KASEY cardi oversion by Dr. Quintero. He has been instructed to be n.p.o. after midnight except taking his medication s with small sips of water. Patient has been told that if any problems or concerns post discharge, cullen norris has been instructed to not perform any strenuous activity, and I have recommended that he not drive until he has had his procedure. Risks and benefits of KASEY cardioversion explained to the patient. He verbalized understanding and is wanting to proceed. Patient has also been told that, once he is d ischarged, if he has any problems or concerns, or if any significant symptoms increase, he is to retu rn to the hospital. He verbalizes his understanding. We will plan for him to follow up tomorrow for cardioversion. This was explained. I have also discussed this with Dr. Quintero and emergency departmen t physician and staff. /[id number]/MODL
== END 2017-11-25 14:38 | disposition still patient (30) ==
DX: I48.92 Unspecified atrial flutter (principal); I10 Essential (primary) hypertension; E86.9 Volume depletion, unspecified

== ENCOUNTER 2017-11-26 06:28 | Day surgery (SDC) | payer OTHER ==
[2017-11-26] MEDS ORDERED: BENZOCAINE UNIT DOSE SPRAY HURRICAINE MM ONE (06:29)
[2017-11-26] MEDS ORDERED: NS 500 ML IV ONE (06:29)
[2017-11-26] MEDS ORDERED: MIDAZOLAM 2 MG/2 ML VIAL IVP ONE (06:29)
[2017-11-26] MEDS ORDERED: fentaNYL 100 MCG/2 ML INJ IVP ONE (06:29)
[2017-11-26] MEDS ORDERED: ATROPINE SULFATE 1 MG/10 ML SYR IVP ONE (06:29)
--- NOTE | 2017-11-26 07:33 | PDANEPAE ---
TRENA History of Present Illness 67 year old male w/ A. Fib presents for KASEY & CV with Dr. Quintero. TRENA Past Medical History - Cardiovascular History Hx Hypertension: No Hx Arrhythmias: Yes Hx Chest Pain: No Hx Coronary Artery / Peripheral Vascular Disease: No Hx CHF / Valvular Disease: No Hx Palpitations: No Cardiovascular History Comment: Lisa Juan - Pulmonary History Hx COPD: No Hx Asthma/Reactive Airway Disease: No Hx Recent Upper Respiratory Infection: No Hx Oxygen in Use at Home: No Hx Sleep Apnea: No - Endocrine History Hx Diabetes: No Hypothyroid: No Hyperthyroid: No Obesity: no - Renal History Hx Renal Disorders: No - Liver History Hx Hepatic Disorders: No - Neurological & Psychiatric Hx Hx Neurological and Psychiatric Disorders: No - Cancer History Hx Cancer: No - Congenital Disorder History Hx Congenital Disorders: No - GI History GERD: no Hx Gastrointestinal Disorders: No - Chronic Pain History Chronic Pain: No ANE Review of Systems Review of systems is: negative Review of Systems: - Exercise capacity Exercise capacity: >=4 METS ANE Patient History - Allergies Allergies/Adverse Reactions: No Known Allergies Allergy (Verified 11/25/17 13:28) - Home Medications Home medications: home medication list seen and reviewed Home Medications: Apixaban [Eliquis] 5 mg PO BID #0 10/23/17 [Last Taken 11/14/17 21:00] Metoprolol Succinate Xr [Toprol Xl 25 mg (*)] 12.5 mg PO DAILY #0 10/23/17 [ Last Taken 11/05/17] Ascorbic Acid [Vitamin C 500 mg (*)] 1,000 mg PO DAILY 11/17/17 [Last Taken ] Cholecalciferol Vit D3 [Vitamin D3 (*)] 1,000 units PO DAILY 11/17/17 [Last Taken 11/16/17] Glucosamine Sulfate [Glucosamine Sulfate 500 MG (*)] 1,500 mg PO DAILY 11/17/17 [Last Taken 11/16/17] Herbals/Supplements -Info Only 1 ea PO DAILY 11/17/17 [Last Taken Unknown] Irbesartan [Avapro 75 mg (*)] 75 mg PO DAILY 11/17/17 [Last Taken 11/14/17] Multivitamins [Multivitamin (*)] 1 each PO DAILY 11/17/17 [Last Taken 11/16/17] Omeprazole 20 mg PO DAILY 11/17/17 [Last Taken 11/16/17] - NPO status NPO Status: no food or drink >8 hours - Anes Hx Anes Hx: no prior problems - Smoking Hx Smoking Status: Never smoked Marijuana use: No - Alcohol Use Alcohol Use: Rarely - Family Anes Hx Family Anes Hx: neg - N/A ANE Labs/Vital Signs - Labs Result Diagrams: 11/26/17 06:50 - Vital Signs Vital Signs: reviewed preoperatively; see RN documention for details Height: 175 cm Weight: 66.2 kg ANE Physical Exam - Airway Neck exam: FROM Mallampati Score: Class 1 Mouth exam: normal dental/mouth exam - Pulmonary Pulmonary: no respiratory distress - Cardiovascular Cardiovascular: regular rate and rhythym - ASA Status ASA Status: III ANE Anesthesia Plan Anesthesia Plan: GA with mask Total IV Anesthesia: Yes
[2017-11-26 07:34] LABS: INR 1.14 (0.83-1.16); PROTIME(PATIENT) 14.8 SEC (12.0-15.0)
[2017-11-26] MEDS ORDERED: PROPOFOL 200 MG/20 ML VIAL ONE (07:54)
--- NOTE | 2017-11-26 08:25 | PDGENHP ---
History & Physical Chief Complaint: tachycardia Relevant Physical Exam: s1s2 tachycardic. cta. ao3 Cardiorespiratory Assessment: recent ablation for left at. AT slower post ablation but still present. Plan KASEY CV
--- NOTE | 2017-11-26 08:36 | PDTEE1 ---
KASEY Cardioversion Procedure Procedure: electrical cardioversion, transesophageal echo Indications: other (left atrial tachycardia) Procedural Details: Pads were placed in anterior-posterior position. KASEY probe was advanced and standard images obtained. There is no evidence of left atrial or left atrial appendage thrombus. Synchronized cardioversion attempt #1: 50J Results: normal sinus rhythm Conclusions: successful KASEY cardioversion Patient Problems: Problems Problem Status Onset Atrial fibrillation and flutter Acute
--- NOTE | 2017-11-26 08:46 | CPEKG ---
Heart Rate: 69 RR Interval: 870 P-R Interval: 200 QRSD Interval: 86 QT Interval: 404 QTC Interval: 433 P [place]: 34 QRS [place]: -40 T Wave [place]: 30 EKG Severity - OTHERWISE NORMAL ECG - EKG Impression: SINUS RHYTHM EKG Impression: LEFT AXIS DEVIATION Electronically Signed By: Timothy Quintero 26-Nov-2017 10:39:02
--- NOTE | 2017-11-26 20:23 | POSTANESTH ---
Post Anesthetic Evaluation Cardiovascular Status: Normal, Stable, Similar to Pre-Op Cond Respiratory Status: Normal, Stable, Similar to Pre-op Cond. Level of Consciousness/Mental Status: Can Participate in Eval, Alert and Oriented Pain Control: Adequate, Prn Tx Ordered Nausea/Vomiting Control: Adequate, Prn Tx Ordered Complications Possibly Related to Anesthesia: None Noted
== END 2017-11-26 09:39 | disposition home or self-care (01) ==
LOC: FCATH 06:28
PROVIDERS: ATTEND Internal Medicine Cardiovascular Disease
DX: I47.1 Supraventricular tachycardia (principal); Z86.79 Personal history of other diseases of the circulatory system
CPT/HCPCS: J0461; J2704

== ENCOUNTER 2017-12-04 09:53 | Day surgery (SDC) | payer OTHER ==
[2017-12-04] MEDS ORDERED: NS 500 ML IV ONE (09:56)
[2017-12-04] MEDS ORDERED: fentaNYL 100 MCG/2 ML INJ IVP ONE (09:56)
[2017-12-04] MEDS ORDERED: MIDAZOLAM 2 MG/2 ML VIAL IVP ONE (09:56)
[2017-12-04] MEDS ORDERED: ATROPINE SULFATE 1 MG/10 ML SYR IVP ONE (09:56)
[2017-12-04] MEDS ORDERED: ATROPINE SULFATE 1 MG/10 ML SYR ONE (09:58)
[2017-12-04 10:34] LABS: INR 1.15 (0.83-1.16); PROTIME(PATIENT) 14.9 SEC (12.0-15.0)
--- NOTE | 2017-12-04 11:05 | PDANEPAE ---
ANE Past Medical History - Cardiovascular History Hx Hypertension: No Hx Arrhythmias: Yes Hx Chest Pain: No Hx Coronary Artery / Peripheral Vascular Disease: No Hx CHF / Valvular Disease: No Hx Palpitations: No Cardiovascular History Comment: A. Fib - Pulmonary History Hx COPD: No Hx Asthma/Reactive Airway Disease: No Hx Recent Upper Respiratory Infection: No Hx Oxygen in Use at Home: No Hx Sleep Apnea: No - Endocrine History Hx Diabetes: No - Renal History Hx Renal Disorders: No - Liver History Hx Hepatic Disorders: No - Neurological & Psychiatric Hx Hx Neurological and Psychiatric Disorders: No - Cancer History Hx Cancer: No - Congenital Disorder History Hx Congenital Disorders: No - GI History Hx Gastrointestinal Disorders: No - Chronic Pain History Chronic Pain: No ANE Review of Systems Review of Systems: ANE Patient History - Allergies Allergies/Adverse Reactions: No Known Allergies Allergy (Verified 11/25/17 13:28) - Home Medications Home Medications: Apixaban [Eliquis] 5 mg PO BID #0 10/23/17 [Last Taken 11/14/17 21:00] Metoprolol Succinate Xr [Toprol Xl 25 mg (*)] 12.5 mg PO DAILY #0 10/23/17 [ Last Taken 11/05/17] Ascorbic Acid [Vitamin C 500 mg (*)] 1,000 mg PO DAILY 11/17/17 [Last Taken ] Cholecalciferol Vit D3 [Vitamin D3 (*)] 1,000 units PO DAILY 11/17/17 [Last Taken 11/16/17] Glucosamine Sulfate [Glucosamine Sulfate 500 MG (*)] 1,500 mg PO DAILY 11/17/17 [Last Taken 11/16/17] Herbals/Supplements -Info Only 1 ea PO DAILY 11/17/17 [Last Taken Unknown] Irbesartan [Avapro 75 mg (*)] 75 mg PO DAILY 11/17/17 [Last Taken 11/14/17] Multivitamins [Multivitamin (*)] 1 each PO DAILY 11/17/17 [Last Taken 11/16/17] Omeprazole 20 mg PO DAILY 11/17/17 [Last Taken 11/16/17] - Smoking Hx Smoking Status: Never smoked ANE Labs/Vital Signs - Labs Result Diagrams: 12/04/17 10:10 - Vital Signs Height: 175 cm Weight: 66.2 kg ANE Physical Exam - Airway Neck exam: FROM Mallampati Score: Class 1 Mouth exam: normal dental/mouth exam - Pulmonary Pulmonary: no respiratory distress, no rales or rhonchi, clear to auscultation - Cardiovascular Cardiovascular: irregularly irregular - ASA Status ASA Status: III ANE Anesthesia Plan Anesthesia Plan: GA with mask
[2017-12-04] MEDS ORDERED: PROPOFOL 200 MG/20 ML VIAL ONE (11:06)
--- NOTE | 2017-12-04 11:45 | CPEKG ---
Heart Rate: 66 RR Interval: 909 P-R Interval: 212 QRSD Interval: 88 QT Interval: 412 QTC Interval: 432 P [place]: 33 QRS [place]: -35 T Wave [place]: 29 EKG Severity - OTHERWISE NORMAL ECG - EKG Impression: SINUS RHYTHM EKG Impression: LEFT AXIS DEVIATION Electronically Signed By: Timothy Quintero 05-Dec-2017 07:35:52
[2017-12-04] MEDS ORDERED: NALOXONE HCL 0.4 MG/ML INJ IVP PRN (12:01)
--- NOTE | 2017-12-04 16:51 | EPPROC ---
Electrophysiology Procedure Note: Procedure: Synchronized DCCV Indication: Symptomatic AT Procedure: Pt sedated by anesthesia staff. Once sedated, pt underwent synchronized DCCV at 200J. Pt converted to SR. Conclusion: Successful CV Patient Problems: Problems Problem Status Onset Atrial fibrillation and flutter Acute
== END 2017-12-04 12:45 | disposition home or self-care (01) ==
LOC: FCATH 09:53
PROVIDERS: ATTEND Internal Medicine Cardiovascular Disease
PROC: 5A2204Z Restoration of Cardiac Rhythm, Single (ICD-10-PCS; principal; 2017-12-04)
DX: I47.1 Supraventricular tachycardia (principal); I48.92 Unspecified atrial flutter; I10 Essential (primary) hypertension; E78.5 Hyperlipidemia, unspecified; I42.9 Cardiomyopathy, unspecified; Z79.01 Long term (current) use of anticoagulants; Z86.79 Personal history of other diseases of the circulatory system; Z82.49 Family history of ischemic heart disease and other diseases of the circulatory system
CPT/HCPCS: J0461; J2704

== ENCOUNTER 2017-12-17 09:02 | Day surgery (SDC) | payer OTHER ==
[2017-12-17] MEDS ORDERED: fentaNYL 100 MCG/2 ML INJ IVP ONE (09:03)
[2017-12-17] MEDS ORDERED: MIDAZOLAM 2 MG/2 ML VIAL IVP ONE (09:03)
[2017-12-17] MEDS ORDERED: NS 500 ML IV ONE (09:03)
[2017-12-17] MEDS ORDERED: ATROPINE SULFATE 1 MG/10 ML SYR IVP ONE (09:03)
--- NOTE | 2017-12-17 09:19 | CPEKG ---
Heart Rate: 79 RR Interval: 759 P-R Interval: 228 QRSD Interval: 100 QT Interval: 384 QTC Interval: 441 P [place]: -32 QRS [place]: -41 T Wave [place]: 40 EKG Severity - ABNORMAL ECG - EKG Impression: SINUS RHYTHM EKG Impression: FIRST DEGREE AV BLOCK EKG Impression: LEFT AXIS DEVIATION Electronically Signed By: Jose Elias Vaca 17-Dec-2017 11:37:54
[2017-12-17 09:45] LABS: INR 1.2 (0.83-1.16); PROTIME(PATIENT) 15.4 SEC (12.0-15.0)
[2017-12-17] MEDS ORDERED: ETOMIDATE 40 MG/20 ML INJ ONE (10:08)
--- NOTE | 2017-12-17 10:29 | PDPROPOC ---
Sedation Plan of Care Sedation Plan of Care: vital signs stable, mental status noted, patient educated of risks, benefits, alternatives, patient can tolerate sedation ASA Classification: ASA 3 Planned drugs: midazolam, other (etomidate) Mallampati Score: Class 2 Mallampati Reference Image: Patient passed 3-3-2 rule?: Yes
--- NOTE | 2017-12-17 10:37 | PDTEE1 ---
KASEY Cardioversion Procedure Procedure: electrical cardioversion Indications: other (atrial tachycardia with 2:1 conduction) Procedural Details: Pads were placed in anterior-posterior position. KASEY probe was advanced and standard images obtained. There is no evidence of left atrial or left atrial appendage thrombus. Synchronized cardioversion attempt #1: 200J Results: normal sinus rhythm Conclusions: successful cardioversion Conclusion Comment: After informed consent was obtained and n.p.o. status was confirmed, the pads were placed in the anterior and posterior position. We proceeded with elective DC cardioversion with 200 J of biphasic countershock. The patient successfully returned to normal sinus rhythm with a heart rate of 57 bpm. The patient was noted to have a pulse and pulsatile waveform on the pulse oximetry post cardioversion. Uncomplicated elective DC cardioversion. Patient Problems: Problems Problem Status Onset Atrial fibrillation and flutter Acute
--- NOTE | 2017-12-17 10:43 | CPEKG ---
Heart Rate: 57 RR Interval: 1053 P-R Interval: 236 QRSD Interval: 98 QT Interval: 432 QTC Interval: 421 P [place]: 41 QRS [place]: -42 T Wave [place]: 35 EKG Severity - ABNORMAL ECG - EKG Impression: SINUS RHYTHM EKG Impression: FIRST DEGREE AV BLOCK EKG Impression: LEFT AXIS DEVIATION Electronically Signed By: Jose Elias Vaca 17-Dec-2017 11:37:43
== END 2017-12-17 11:52 | disposition home or self-care (01) ==
LOC: FCATH 09:02
PROVIDERS: ATTEND Internal Medicine Cardiovascular Disease
PROC: 5A2204Z Restoration of Cardiac Rhythm, Single (ICD-10-PCS; principal; 2017-12-17)
DX: I48.0 Paroxysmal atrial fibrillation (principal); E78.5 Hyperlipidemia, unspecified; I10 Essential (primary) hypertension; Z79.01 Long term (current) use of anticoagulants
CPT/HCPCS: J0461; J2250; J3010